=== PATIENT | female | born 1965 | race Caucasian/White ===

== ENCOUNTER 2018-01-01 07:14 | Day surgery (SDC) | payer BC ==
[~2018-01-01 07:14] MED LIST: Lactated Ringers 1,000 ML IV SCH; Sodium Chloride 0.9% 10 ML Syringe FLUSH PRN; Sodium Chloride 0.9% 2.5 ML Syringe FLUSH PRN
--- NOTE | 2018-01-01 07:49 | PCM.PREANE ---
Preanesthetic Assessment - Procedure Proposed Procedure: colonoscopy screening - Anesthesia/Transfusion/Family Hx Anesthesia History: Prior Anesthesia Without Reaction Family History of Anesthesia Reaction: No Transfusion History: No Prior Transfusion(s) - Review of Systems Other: Reports: None - Physical Assessment NPO Status Date: 01/01/18 NPO Status Time: 04:30 (sip of H20) Pulse: 80 O2 Sat by Pulse Oximetry: 99 Respiratory Rate: 14 Blood Pressure: 141/78 Temperature: 36.8 C Height: 5 ft 9 in Weight: 85.729 kg ASA Class: 2 Mental Status: Alert & Oriented x3 Airway Class: Mallampati = 1 Dentition: Reports: Normal Dentition Thyro-Mental Finger Breadths: 3 Mouth Opening Finger Breadths: 3 ROM/Head Extension: Full - Allergies Allergies/Adverse Reactions: Allergies Allergy/AdvReac Type Severity Reaction Status Date / Time No Known Allergies Allergy Verified 12/27/17 14:21 - Blood Blood Available: No - Acknowledgements Anesthesia Type Planned: MAC Pt an Appropriate Candidate for the Planned Anesthesia: Yes Alternatives and Risks of Anesthesia Discussed w Pt/Guardian: Yes Pt/Guardian Understands and Agrees with Anesthesia Plan: Yes PreAnesthesia Questionnaire HEENT History: Reports: Retinal Detachment, Other (See Below) Other HEENT History: wears glasses, has a "buckle" around right eye for retinal detachment... 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 [employer] History: Reports: Musculoskeletal History: Reports: Fracture Other Musculoskeletal History: hx of fx finger Endocrine/Metabolic History: Reports: Hypothyroidism - Past Surgical History HEENT Surgical History: Reports: Detached Retina, Tonsillectomy Female Surgical History: Reports: Breast Biopsy, Section, Other ( See Below) Other Female Surgeries/Procedures: hx of abdominoplasty Musculoskeletal Surgical History: Reports: Other (See Below) Other Musculoskeletal Surgeries/Procedures:: hx of right bunionectomy (no screw) - SUBSTANCE USE Smoking Status *Q: Never Smoker Recreational Drug Use History: No - HOME MEDS Home Medications: Home Meds Ergocalciferol (Vitamin D2) [Vitamin D2] 50,000 unit PO DAILY 12/27/17 [History] Escitalopram Oxalate 5 mg PO DAILY 12/27/17 [History] Hydrochlorothiazide 25 mg PO Q48H 12/27/17 [History] Levothyroxine Sodium [Levoxyl] 75 mg PO DAILY 12/27/17 [History] Zolpidem Tartrate 10 mg PO BEDTIME PRN 12/27/17 [History] - CURRENT (IN HOUSE) MEDS Current Meds: Current Medications Lactated Ringer's (Ringers, Lactated) 1,000 mls @ 125 mls/hr IV ASDIRECTED NAGI Sodium Chloride (Saline Flush) 10 ml FLUSH ASDIRECTED PRN PRN Reason: Keep Vein Open Sodium Chloride (Saline Flush) 2.5 ml FLUSH ASDIRECTED PRN PRN Reason: Keep Vein Open
[2018-01-01] MEDS ORDERED: Midazolam 1 MG/ML 2 ML SDV ONE (08:56)
[2018-01-01] MEDS ORDERED: Lidocaine 2% 5 ML SDV ONE (08:56)
[2018-01-01] MEDS ORDERED: fentaNYL 100 MCG/2 ML SDV ONE (08:56)
[2018-01-01] MEDS ORDERED: Propofol 200 MG/20 ML SDV ONE ×3 (08:56→09:43)
--- NOTE | 2018-01-01 09:57 | PCM.OPNOTE ---
- General Post-Op/Procedure Note Date of Surgery/Procedure: 01/01/18 Operative Procedure(s): Colonoscopy Findings: Normal colonoscopy Pre Op Diagnosis: Family history of colon polyps Post-Op Diagnosis: Normal colonoscopy Anesthesia Technique: MAC Primary Surgeon: Jenny Baker Condition: Good
--- NOTE | 2018-01-01 10:15 | PCM.POSTAN ---
POST ANESTHESIA ASSESSMENT - MENTAL STATUS Mental Status: Alert, Oriented - RESPIRATORY Respiratory Status: Respiratory Rate WNL, Airway Patent, O2 Saturation Stable - CARDIOVASCULAR CV Status: Pulse Rate WNL, Blood Pressure Stable - GASTROINTESTINAL GI Status: No Symptoms - PAIN Pain Score: 1 - POST OP HYDRATION Hydration Status: Adequate & Stable
--- NOTE | 2018-01-01 15:28 | OR ---
SURGEON: USAMA MURRAY MD DATE OF PROCEDURE: 01/01/2018 PREOPERATIVE DIAGNOSIS: Family history of colon polyps. POSTOPERATIVE DIAGNOSIS: Normal colonoscopy. PROCEDURE PERFORMED: Screening colonoscopy. ANESTHESIA: MAC. INSTRUMENT USED: Olympus colonoscope. EXTENT OF THE EXAM: To the cecum. PREPARATION: Good. LIMITATIONS: None. INDICATION FOR EXAMINATION: The patient is a 52-year-old female who presents for first time screening colonoscopy. Her brother and father have both had colon polyps removed in the past. We discussed the procedure, expected perioperative course, and risks including bleeding, infection, or damage to surrounding structures including perforation. The patient verbalized understanding and wishes to proceed. PROCEDURE IN DETAIL: The patient was brought into the OR and placed on the OR cart in left lateral decubitus position. A time-out was completed verifying the patient's name, age, date of , allergies, and procedure to be performed. Monitored anesthesia care was induced, and continuous oxygen was provided via face mask throughout the procedure. After adequate sedation was achieved, a digital rectal exam was performed. This exam was within normal limits. A well-lubricated colonoscope was inserted in the rectum and advanced under direct visualization to the level of cecum. The cecum was identified by both visual and anatomic landmarks. A photograph was taken of the cecal cap. I was able to retroflex the scope within the cecum and look up at the ascending colon. The scope was then fully withdrawn while examining the color, texture, anatomy, and integrity of the mucosa from the cecum to the anal canal. Those findings were consistent with normal colonic mucosa. The scope was brought into the rectum and retroflexed to allow visualization of the anal canal opening. This appeared normal, and a photograph was taken. The scope was then straightened out and removed from the patient. The cecum to anus time was 6 minutes. The patient tolerated the procedure well and was taken to PACU in stable condition. ENDOSCOPIC DIAGNOSIS: Normal colonoscopy. RECOMMENDATIONS: Follow up in clinic in 5 years. TEAGAN RAMIREZ /[id number]
== END 2018-01-01 10:50 | disposition home or self-care (01) ==
LOC: MW.SDS 07:14
PROVIDERS: ATTEND Surgery
DX: Z12.11 Encounter for screening for malignant neoplasm of colon (principal); E03.9 Hypothyroidism, unspecified; Z83.71 Family history of colonic polyps; Z79.899 Other long term (current) drug therapy; Z98.890 Other specified postprocedural states
CPT/HCPCS: 45378; 81025; J2250; J3010; J7120; J2704

== ENCOUNTER 2023-07-18 10:06 | Day surgery (SDC) | payer BC ==
[~2023-07-18 10:06] MED LIST changes: +Sodium Chloride 0.9% 20 ML SDV IV PRN; +propofoL 50 ML ONE
== END 2023-07-18 12:17 | disposition home or self-care (01) ==
LOC: MW.SDS 10:06
PROVIDERS: ATTEND Surgery
DX: Z12.11 Encounter for screening for malignant neoplasm of colon (principal); E03.9 Hypothyroidism, unspecified; Z79.899 Other long term (current) drug therapy; Z83.71 Family history of colonic polyps; Z98.890 Other specified postprocedural states
CPT/HCPCS: 45378; J2704; J7120; 00812

== ENCOUNTER 2024-12-31 13:53 | Emergency (ER) | payer BC ==
[2024-12-31] MEDS: Acetaminophen 500 MG Tab PO ONE (14:28)
[2024-12-31 14:47] LABS: MAGNESIUM 2.4 mg/dL (1.8-2.4)
[2024-12-31 14:50] LABS: APPEARANCE,URINE CLEAR; BILIRUBIN,URINE NEGATIVE (NEGATIVE); COLOR,URINE YELLOW; GLUCOSE,URINE NEGATIVE (NEGATIVE); KETONES,URINE NEGATIVE (NEGATIVE); OCCULT BLOOD,URINE NEGATIVE (NEGATIVE); PROTEIN,URINE NEGATIVE (NEGATIVE); UROBILINOGEN,URINE 0.2 EU/dL (<2.0)
[2024-12-31 14:51] LABS: LEUKOCYTE ESTERASE,URINE NEGATIVE (NEGATIVE); NITRITE,URINE NEGATIVE (NEGATIVE)
[2024-12-31] MEDS: Gadoteridol 279.3 MG/ML 20 ML SDV IVPUSH ONE (16:16)
[2024-12-31] MEDS: Sodium Chloride 0.9% 1,000 ML IV ONE (16:31)
[2024-12-31] MEDS: Lidocaine 4% Patch TOP STA (18:30)
[2024-12-31] MEDS: Ondansetron 4 MG/2 ML SDV IVPUSH ONE (21:11)
[2024-12-31] MEDS: HYDROmorphone 0.5 MG/0.5 ML Syringe IVPUSH ONE (21:12)
== END 2024-12-31 22:00 ==
LOC: MW.ED 13:53
DX: S06.30AA Unspecified focal traumatic brain injury with loss of consciousness status unknown, initial encounter (principal); E03.9 Hypothyroidism, unspecified; Z79.890 Hormone replacement therapy; Z79.899 Other long term (current) drug therapy; Z75.8 Other problems related to medical facilities and other health care; W18.30XA Fall on same level, unspecified, initial encounter
CPT/HCPCS: 36415; 70450; 70553; 72125; 81003; 83735; 84443; 84484; 87428; 93005; 96361; 96374; 96375; 99285; A9270; A9579; J2405; J7030; 93010